=== PATIENT | male | born 1955 | race Caucasian/White ===

== ENCOUNTER 2021-06-03 08:47 | Day surgery (SDC) | payer MEDICARE, BC, SELFPAY ==
--- NOTE | 2021-06-02 09:33 | HO.ANESPROP2 ---
Documented by User: Laurie Wilson NP 06/02/21 09:34 HPI - Anesthesia Eval Consult details Narrative: 65yo M for Colonoscopy FOR[facility]LY [facility] Past Medical History Medical History Hx of colonic polyps Hx of myocardial infarction Hyperlipidemia On beta milagro at home Smoker Surgical History Surgical History (Updated 05/28/21 @ 13:00 by Sunshine Rodríguez, RN) History of tonsillectomy Hx of appendectomy Hx of colonoscopy S/P excision of lipoma Social History Social History Patient Tobacco Use Status: Current everyday Tobacco user Tobacco use type: Cigarette Cigarette Packs Per Day: 0.5 Cigarettes Per Day: 10.0 Use of substances other than those prescribed or required for medical reasons: No Advance Directives: No Advance Directives Information Provided: No Advance Directives on File: No Meds Allergies Allergy/AdvReac Type Severity Reaction Status Date / Time No Known Allergies Allergy Verified 06/03/21 09:34 Home Medications Medication Instructions Recorded Confirmed Last Taken Type aspirin 81 mg chewable tablet 1 tab PO DAILY 05/28/21 05/28/21 Unknown History fexofenadine 180 mg tablet 1 tab PO DAILY 05/28/21 05/28/21 Unknown History (Allergy Relief (fexofenadine)) ibuprofen 800 mg tablet 1 tab PO TID 05/28/21 05/28/21 Unknown History metoprolol tartrate 25 mg tablet 25 mg PO DAILY 05/28/21 05/28/21 Unknown History simvastatin 20 mg tablet 20 mg PO DAILY 05/28/21 05/28/21 Unknown History Exam Exam Date and Time: June 02, [id number] Assessment and Plan Assessment Anesthesia Assessment: Chart Reviewed Documented by User: Rafi Garland MD 06/03/21 10:50 [facility] Past Medical History Medical History Hx of colonic polyps Hx of myocardial infarction Hyperlipidemia On beta milagro at home Smoker Family History Family history of problems with anesthesia: No Surgical History Surgical History (Updated 05/28/21 @ 13:00 by Sunshine Rodríguez RN) History of tonsillectomy Hx of appendectomy Hx of colonoscopy S/P excision of lipoma History of Problems with Anesthesia: No Social History Social History Patient Tobacco Use Status: Current everyday Tobacco user Tobacco use type: Cigarette Cigarette Packs Per Day: 0.5 Cigarettes Per Day: 10.0 Use of substances other than those prescribed or required for medical reasons: No Advance Directives: No Advance Directives Information Provided: No Advance Directives on File: No Meds Allergies Allergy/AdvReac Type Severity Reaction Status Date / Time No Known Allergies Allergy Verified 06/03/21 09:34 Home Medications Medication Instructions Recorded Confirmed Last Taken Type aspirin 81 mg chewable tablet 1 tab PO DAILY 05/28/21 05/28/21 Unknown History fexofenadine 180 mg tablet 1 tab PO DAILY 05/28/21 05/28/21 Unknown History (Allergy Relief (fexofenadine)) ibuprofen 800 mg tablet 1 tab PO TID 05/28/21 05/28/21 Unknown History metoprolol tartrate 25 mg tablet 25 mg PO DAILY 05/28/21 05/28/21 Unknown History simvastatin 20 mg tablet 20 mg PO DAILY 05/28/21 05/28/21 Unknown History Exam Airway Mallampati Class: III TM Dist: >3cm Neck ROM: Full Assessment and Plan Assessment Anesthesia Assessment: Anesthesia Plan Discussed Final Anesthetic Review Family History of Problems with Anesthesia: No History of Problems with Anesthesia: No NPO: Yes ASA Class: II Final Preanesthetic Review: No Changes in Pt Med Stat, Meds/Allgs Chart Reviewed, Consent Obtained/Reviewed and Anes Risks/Benef Reviewed Patient Risk: Intermediate Procedure Risk: Low Anesthetic Plan Anesthetic Plan: MAC: Disposition: Standard PACU
[2021-06-03 09:36] VITALS: BP 156/97; PULSE 87; RESP 16; TEMP 36.9; O2SAT 98; BMI 27.3
[2021-06-03] MEDS: Lactated Ringers 1,000 ML 100 ML IVCONT (09:50)
[2021-06-03 11:14] VITALS: BP 121/81; PULSE 79; RESP 16; TEMP 36.8; O2SAT 98
--- NOTE | 2021-06-03 11:18 | PM.OP ---
Brief Operative Note Date of Service: 06/03/21 Pre-op diagnosis: Screening Post-op diagnosis: other (Colon polyp) Procedure: Colonoscopy to the cecum and TI with hot snare polypectomy and placement of 2 Resolution clips Surgeon: Anam Martinez Anesthesia: MAC Was an Cardiovascular Sonographer used for this Procedure?: No Estimated blood loss (mL): 1.0 Pathology: other (A. Colon polyp at 45cm) Condition: stable Disposition: PACU
[2021-06-03 11:30] VITALS: BP 133/84; PULSE 74; RESP 16; TEMP 36.8; O2SAT 96
--- NOTE | 2021-06-03 11:38 | OP_ITS ---
SURGEON: Anam Martinez MD INDICATIONS: The patient presents for evaluation of colorectal cancer screening and personal history of colon polyps. Full consent was obtained from him for this, including risks of bleeding and perforation. PREOPERATIVE DIAGNOSIS: POSTOPERATIVE DIAGNOSIS: PROCEDURE PERFORMED: Colonoscopy to the cecum and terminal ileum with hot snare polypectomy and placement of 2 resolution clips. ESTIMATED BLOOD LOSS: COMPLICATIONS: ANESTHESIA: Monitored anesthesia care. ASSISTANTS: SPECIMENS: PREOPERATIVE DIAGNOSES: Colorectal cancer screening and personal history of colon polyps. POSTOPERATIVE DIAGNOSES: Colorectal cancer screening and personal history of colon polyps, colon polyp, diverticulosis, and internal hemorrhoids. DESCRIPTION OF PROCEDURE: The patient was placed in the left lateral decubitus position. The digital rectal exam revealed no abnormalities. The Olympus video pediatric colonoscope was entered into the rectum and advanced easily to the cecum. Once in the cecum, I did identify normal-appearing cecal pouch with appendiceal orifice and a normal-appearing ileocecal valve. The terminal ileum was cannulated and appeared normal. The scope withdrawn back in the colon. The entire cecum and ileocecal valve appeared normal. The scope was slowly withdrawn assessing all mucosal surfaces carefully. Preparation was excellent. Previously placed ink reyes were noted between approximately 30 and 50 cm. Between 2 of the more proximal markings was an approximately 15 mm raised, but flat polyp. This was removed in piecemeal fashion with pieces recovered by suction. Post-polypectomy, there did not appear to be any definitive residual polyp nor bleeding. Two resolution clips were applied with good deployment and good hemostasis. I did not visualize any other polyps, colitis, nor angiodysplasia. There was a mild amount of sigmoid diverticulosis. In the rectum, the scope was retroflexed visualizing internal hemorrhoids, but no other pathology. The rectal mucosa appeared normal. The scope was straightened and withdrawn from the patient. He tolerated the procedure well and was returned to the recovery area in stable condition. IMPRESSION: 1. Colon polyp, status post hot snare polypectomy and placement of 2 resolution clips. 2. Diverticulosis. 3. Internal hemorrhoids. PLAN: The results of the pathology will be checked. I would recommend a repeat colonoscopy within 1-2 years for further evaluation. He was advised to resume his aspirin in 48 hours. MD COURTNEY Bean/DESHAWNL / [id number] [facility]
== END 2021-06-03 12:12 | disposition home or self-care (01) ==
PROVIDERS: PCP Family Medicine; Visit Provider Internal Medicine
PROC: 0DJD8ZZ Inspection of Lower Intestinal Tract, Via Natural or Artificial Opening Endoscopic (ICD-10-PCS; CPT 45378; principal; 2021-06-03 10:00)
DX: Z12.11 Encounter for screening for malignant neoplasm of colon (principal); Z86.010 Personal history of colon polyps; D12.5 Benign neoplasm of sigmoid colon; K57.30 Diverticulosis of large intestine without perforation or abscess without bleeding; K64.8 Other hemorrhoids; I25.2 Old myocardial infarction; E78.5 Hyperlipidemia, unspecified; Z79.899 Other long term (current) drug therapy; F17.210 Nicotine dependence, cigarettes, uncomplicated; Z79.82 Long term (current) use of aspirin
CPT/HCPCS: 45385; 88305

== ENCOUNTER 2023-05-09 10:46 | Day surgery (SDC) | payer MEDICARE, BC, SELFPAY ==
[2023-05-09] MEDS: Lactated Ringers 1,000 ML 100 ML IVCONT (11:48)
[2023-05-09 11:53] VITALS: BP 133/83; PULSE 78; RESP 18; TEMP 36.8; O2SAT 96; BMI 29.8
--- NOTE | 2023-05-09 12:00 | P.CONAN_ITS ---
Documented by User: Laurie Wilson NP 05/06/23 12:43 HPI - Anesthesia Eval Consult details Narrative: 67yo M for Colonoscopy Remote hx [place], Smoker [facility] Past Medical History Medical History On beta milagro at home Smoker Hx of colonic polyps Hx of myocardial infarction Hyperlipidemia Family History Family history of problems with anesthesia: No Surgical History Surgical History S/P excision of lipoma History of tonsillectomy Hx of appendectomy Hx of colonoscopy History of Problems with Anesthesia: No Social History Social History Patient Tobacco Use Status: Current everyday Tobacco user Tobacco use type: Cigarette Cigarette Packs Per Day: 0.5 Cigarettes Per Day: 10.0 Smoked in Last 30 Days: Yes Patient Interested in Nicotine Replacement: No Are you DNR?: No Advance Directives: No Advance Directives Information Provided: Yes Nutrition Risks: No Nutritional Risk Meds Allergies Allergy/AdvReac Type Severity Reaction Status Date / Time No Known Allergies Allergy Verified 05/09/23 11:11 Home Medications Medication Instructions Recorded Confirmed Last Taken Type aspirin 81 mg chewable tablet 1 tab PO DAILY 05/28/21 05/09/23 05/06/23 History fexofenadine 180 mg tablet 1 tab PO DAILY 05/28/21 05/09/23 Unknown History (Allergy Relief (fexofenadine)) ibuprofen 800 mg tablet 1 tab PO TID 05/28/21 05/09/23 Unknown History metoprolol tartrate 25 mg tablet 25 mg PO DAILY 05/28/21 05/09/23 05/09/23 History simvastatin 20 mg tablet 20 mg PO DAILY 05/28/21 05/09/23 05/09/23 History Assessment and Plan Assessment Anesthesia Assessment: Chart Reviewed Final Anesthetic Review Family History of Problems with Anesthesia: No History of Problems with Anesthesia: No Documented by User: Nadia Wright DO 05/09/23 12:03 [facility] Past Medical History Medical History On beta milagro at home Smoker Hx of colonic polyps Hx of myocardial infarction Hyperlipidemia Family History Family history of problems with anesthesia: No Surgical History Surgical History S/P excision of lipoma History of tonsillectomy Hx of appendectomy Hx of colonoscopy History of Problems with Anesthesia: No Social History Social History Patient Tobacco Use Status: Current everyday Tobacco user Tobacco use type: Cigarette Cigarette Packs Per Day: 0.5 Cigarettes Per Day: 10.0 Smoked in Last 30 Days: Yes Patient Interested in Nicotine Replacement: No Are you DNR?: No Advance Directives: No Advance Directives Information Provided: Yes Nutrition Risks: No Nutritional Risk Meds Allergies Allergy/AdvReac Type Severity Reaction Status Date / Time No Known Allergies Allergy Verified 05/09/23 11:11 Home Medications Medication Instructions Recorded Confirmed Last Taken Type aspirin 81 mg chewable tablet 1 tab PO DAILY 05/28/21 05/09/23 05/06/23 History fexofenadine 180 mg tablet 1 tab PO DAILY 05/28/21 05/09/23 Unknown History (Allergy Relief (fexofenadine)) ibuprofen 800 mg tablet 1 tab PO TID 05/28/21 05/09/23 Unknown History metoprolol tartrate 25 mg tablet 25 mg PO DAILY 05/28/21 05/09/23 05/09/23 History simvastatin 20 mg tablet 20 mg PO DAILY 05/28/21 05/09/23 05/09/23 History Exam Height,Weight and Vital Signs: Height 5 ft 8 in Weight 88.904 kg Vital Signs Temperature 98.2 F 05/09/23 11:53 Pulse Rate 78 05/09/23 11:53 Respiratory Rate 18 05/09/23 11:53 Blood Pressure 133/83 05/09/23 11:53 Pulse Oximetry 96 05/09/23 11:53 Oxygen Delivery Method Room Air 05/09/23 11:53 Temperature 98.2 F 05/09/23 11:53 Pulse Rate 78 05/09/23 11:53 Respiratory Rate 18 05/09/23 11:53 Blood Pressure 133/83 05/09/23 11:53 Pulse Oximetry 96 05/09/23 11:53 Oxygen Delivery Method Room Air 05/09/23 11:53 Airway Mallampati Class: I TM Dist: <=3cm Neck ROM: Full Loose/Missing/Broken Teeth: No Heart: S1S2 Lungs: CTAB Assessment and Plan Assessment Anesthesia Assessment: Anesthesia Plan Discussed and Chart Reviewed Final Anesthetic Review Family History of Problems with Anesthesia: No History of Problems with Anesthesia: No NPO: Yes ASA Class: II Final Preanesthetic Review: No Changes in Pt Med Stat, Meds/Allgs Chart Reviewed, Consent Obtained/Reviewed and Anes Risks/Benef Reviewed Patient Risk: Low Procedure Risk: Low Anesthetic Plan Anesthetic Plan: MAC: and Agree w/ Assess. and Plan Disposition: Standard PACU
--- NOTE | 2023-05-09 12:18 | HO.ANESPROP2 ---
FORMERLY [facility] Past Medical History Medical History On beta milagro at home Smoker Hx of colonic polyps Hx of myocardial infarction Hyperlipidemia Functional capacity: independent ambulation Family History Family history of problems with anesthesia: No Surgical History Surgical History S/P excision of lipoma History of tonsillectomy Hx of appendectomy Hx of colonoscopy History of Problems with Anesthesia: No Social History Social History Patient Tobacco Use Status: Current everyday Tobacco user Tobacco use type: Cigarette Cigarette Packs Per Day: 0.5 Cigarettes Per Day: 10.0 Smoked in Last 30 Days: Yes Patient Interested in Nicotine Replacement: No Are you DNR?: No Advance Directives: No Advance Directives Information Provided: Yes Nutrition Risks: No Nutritional Risk Meds Allergies Allergy/AdvReac Type Severity Reaction Status Date / Time No Known Allergies Allergy Verified 05/09/23 11:11 Active Medications: Current Medications Albuterol Sulfate (Albuterol Sulfate (0.083%) 2.5 Mg/3 Ml Vial.Neb) 2.5 mg INHALE ONCE PRN PRN Reason: Shortness of Breath/Wheezing Lactated Ringer's (Lr) 1,000 mls @ 100 mls/hr IVCONT .Q10H ANTONIET[place] Last Admin: 05/09/23 11:48 Dose: 100 mls/hr Sodium Biphosphate/Sodium Phosphate (Sodium Phosphate,[place]-Dibasic 133 Ml Enema) 133 ml CA ONCE PRN PRN Reason: Poor Colonoscopy Prep Results Home Medications Medication Instructions Recorded Confirmed Last Taken Type aspirin 81 mg chewable tablet 1 tab PO DAILY 05/28/21 05/09/23 05/06/23 History fexofenadine 180 mg tablet 1 tab PO DAILY 05/28/21 05/09/23 Unknown History (Allergy Relief (fexofenadine)) ibuprofen 800 mg tablet 1 tab PO TID 05/28/21 05/09/23 Unknown History metoprolol tartrate 25 mg tablet 25 mg PO DAILY 05/28/21 05/09/23 05/09/23 History simvastatin 20 mg tablet 20 mg PO DAILY 05/28/21 05/09/23 05/09/23 History Exam Height,Weight and Vital Signs: Height 5 ft 8 in Weight 88.904 kg Last Vital Signs Temp 98.2 F 05/09/23 11:53 Pulse 78 05/09/23 11:53 Resp 18 05/09/23 11:53 BP 133/83 05/09/23 11:53 Pulse Ox 96 05/09/23 11:53 O2 Del Method Room Air 05/09/23 11:53 Airway Mallampati Class: II TM Dist: >3cm Neck ROM: Full Heart: RRR Lungs: CTA Assessment and Plan Assessment Anesthesia Assessment: Anesthesia Plan Discussed and Smoking Cess. Discussed Final Anesthetic Review Family History of Problems with Anesthesia: No History of Problems with Anesthesia: No ASA Class: II Final Preanesthetic Review: Meds/Allgs Chart Reviewed, Consent Obtained/Reviewed and Anes Risks/Benef Reviewed Patient Risk: Low Procedure Risk: Low Anesthetic Plan Anesthetic Plan: MAC: Disposition: Standard PACU
[2023-05-09 13:06] VITALS: BP 108/68; PULSE 72; RESP 16; TEMP 36.1; O2SAT 94
--- NOTE | 2023-05-09 13:09 | P.BOP_ITS ---
Brief Operative Note Date of Service: 05/09/23 Pre-op diagnosis: Screening Post-op diagnosis: other (Colon polyps) Procedure: Colonoscopy to the cecum and TI with hot snare polypectomy x 6 with placement of 1 Resolution clip on each polypectomy site Surgeon: Anam Martinez MD Anesthesia: MAC Was an Student Development Specialist used for this Procedure?: No Estimated blood loss (mL): 0 Pathology: other (A. Polyp at 40cm B. Two Polyps at 30cm C. Three Polyps at 20cm) Condition: stable Disposition: PACU
[2023-05-09 13:21] VITALS: BP 131/78; PULSE 78; RESP 16; TEMP 36.1; O2SAT 96
--- NOTE | 2023-05-09 15:02 | OP_ITS ---
DATE OF SERVICE: 05/09/2023 SURGEON: Anam Martinez MD INDICATIONS: The patient presents for followup of personal history of colon polyps and need for colorectal cancer screening. Full consent has been obtained from him for this, including risks of bleeding and perforation. PREOPERATIVE DIAGNOSIS: POSTOPERATIVE DIAGNOSIS: PROCEDURE PERFORMED: ESTIMATED BLOOD LOSS: COMPLICATIONS: ANESTHESIA: Monitored anesthesia care. ASSISTANTS: SPECIMENS: PREOPERATIVE DIAGNOSES: Personal history of colon polyps and colorectal cancer screening. POSTOPERATIVE DIAGNOSES: Personal history of colon polyps, colorectal cancer screening, colon polyps, diverticulosis, and internal hemorrhoids. PROCEDURES PERFORMED: Colonoscopy to the cecum and terminal ileum with hot snare polypectomy x6 with placement of a Resolution clip on each polypectomy site. DESCRIPTION OF PROCEDURE: The patient was placed in the left lateral decubitus position. The digital rectal exam revealed no abnormalities. The digital rectal exam revealed no abnormalities. The [employer] video pediatric colonoscope was then entered into the rectum and advanced easily to the cecum. Once in the cecum, I did identify normal-appearing cecal pouch with appendiceal orifice and a normal-appearing ileocecal valve. The terminal ileum was cannulated and appeared normal. Scope was withdrawn back in the colon. The entire cecum and ileocecal valve appeared normal. The scope was slowly withdrawn, assessing all mucosal surfaces carefully. Preparation was excellent. Between 30 and 50 cm, there were several previously placed submucosal ink reyes. At 40 cm was an approximately 8 to 10 mm polyp, which was removed by hot snare polypectomy and recovered by suction. At 30 cm, there were 2 flat, approximately 8 to 10 mm polyps, which were each snared and recovered by suction. At 20 cm, there were 3 approximately 5 to 8 mm polyps, which were all removed by hot snare polypectomy and recovered by suction. All the above polypectomy sites appeared clean, without any sign of residual polyp or bleeding. A single Resolution clip was applied to each polypectomy site with good deployment and good hemostasis. I did not visualize any other polyps, colitis, or angiodysplasia. There was a mild amount of sigmoid diverticulosis. In the rectum, scope was retroflexed, visualizing internal hemorrhoids, but no other pathology. The rectal mucosa appeared normal. The scope was straightened and withdrawn from the patient. He tolerated the procedure well and was returned to the recovery area in stable condition. IMPRESSION: 1. Colon polyps. 2. Diverticulosis. 3. Internal hemorrhoids. PLAN: Given his previous history and today's findings, I would recommend a repeat colonoscopy in 2 to 3 years for further screening. He was advised to resume his aspirin in 48 hours. He will, otherwise, see me on a p.r.n. basis. MD COURTNEY Bean/KUN / [id number]
== END 2023-05-09 13:50 | disposition home or self-care (01) ==
PROVIDERS: PCP Family Medicine; Visit Provider Internal Medicine
PROC: 0DJD8ZZ Inspection of Lower Intestinal Tract, Via Natural or Artificial Opening Endoscopic (ICD-10-PCS; CPT 45378; principal; 2023-05-09 12:10)
DX: Z12.11 Encounter for screening for malignant neoplasm of colon (principal); Z86.010 Personal history of colon polyps; D12.4 Benign neoplasm of descending colon; D12.5 Benign neoplasm of sigmoid colon; K63.5 Polyp of colon; K57.30 Diverticulosis of large intestine without perforation or abscess without bleeding; K64.8 Other hemorrhoids; E78.5 Hyperlipidemia, unspecified; I25.2 Old myocardial infarction; Z79.82 Long term (current) use of aspirin; Z79.899 Other long term (current) drug therapy; F17.210 Nicotine dependence, cigarettes, uncomplicated
CPT/HCPCS: 45385; 88305; J2704